=== PATIENT | female | born 1945 | race Caucasian/White ===

== ENCOUNTER 2021-03-05 20:10 | Emergency (ER) | payer MEDICARE ==
[2021-03-05 20:38] VITALS: BP 182/77; PULSE 73; O2SAT 99
[2021-03-05] MEDS ORDERED: CLEOCIN 150 MG CAPSULE PO ONE (20:47)
[2021-03-05] MEDS ORDERED: Adacel Vial IM ONE ×2 (20:48→20:50)
[2021-03-05] MEDS ORDERED: CLEOCIN 150 MG CAPSULE ONE (20:50)
--- NOTE | 2021-03-05 20:54 | ERPHSYRPT ---
- History of Present Illness Time Seen by Provider: 03/05/21 20:34 Source: patient Exam Limitations: no limitations Patient Subjective Stated Complaint: . Triage Nursing Assessment: . Physician History: 75-year-old right-handed dominant female presented in the ER with chief complaint of cat bite right index finger middle phalanx. Patient reports it started son's cat and unsure about immunization status. She is complaining of mild dull aching pain and has 2 puncture wounds. No difficulty movements of finger. Minimal swelling around. Timing/Duration: hour(s) (3), constant, sudden Quality: burning Severity: mild Location: hands Possible Causes: other Associated Symptoms: denies symptoms Allergies/Adverse Reactions: Sulfa (Sulfonamide Antibiotics) Allergy (Intermediate, Verified 03/05/21 20:38) Hives Penicillins Adverse Reaction (Mild, Verified 03/05/21 20:38) Rash Home Medications: Hydroxychloroquine Sulfate 100 mg PO DAILY 03/05/21 [History] Hx Tetanus, Diphtheria Vaccination/Date Given: No Hx Influenza Vaccination/Date Given: Yes Hx Pneumococcal Vaccination/Date Given: Yes Immunizations Up to Date: Yes Travel Risk - International Travel Have you traveled outside of the country in past 3 weeks: No - Coronavirus Screening Are you exhibiting any of the following symptoms?: No Close contact with a COVID-19 positive Pt in past 14-21 Days: No - Vaccine Status Have you recieved a Covid-19 vaccination: Yes [employer] Operator: [employer] - Review of Systems Constitutional: No Symptoms Eyes: No Symptoms Ears, Nose, & Throat: No Symptoms Respiratory: No Symptoms Cardiac: No Symptoms Musculoskeletal: Injury Skin: Skin Lesions Neurological: No Symptoms Psychological: No Symptoms Endocrine: No Symptoms - Past Medical History Pertinent Past Medical History: Yes Cardiac History: Hypertension Musculoskeletal History: Degenerative Disk Disease, Rheumatoid Arthritis - Past Surgical History Past Surgical History: Yes Respiratory: Lobectomy Gastrointestinal: Cholecystectomy Musculoskeletal: Orthopedic Surgery Female Surgical History: Hysterectomy, Section Other Surgical History: Back surgery - Social History Smoking Status: Never smoker Exposure to second hand smoke: No Drug Use: none Patient Lives Alone: Yes - Female History Hx Now: No - Nursing Vital Signs Nursing Vital Signs: Initial Vital Signs Temperature 96.8 F 03/05/21 20:32 Pulse Rate 73 03/05/21 20:32 Respiratory Rate 18 03/05/21 20:32 Blood Pressure 182/77 03/05/21 20:32 O2 Sat by Pulse Oximetry 99 03/05/21 20:32 Pain Scale Pain Intensity 5 - Physical Exam General Appearance: no apparent distress, alert Eye Exam: PERRL/EOMI, eyes nml inspection Ears, Nose, Throat Exam: normal ENT inspection, pharynx normal, moist mucous membranes Neck Exam: normal inspection Respiratory Exam: normal breath sounds, lungs clear Cardiovascular Exam: regular rate/rhythm, normal heart sounds Extremity Exam: other (2 puncture wound on the lateral and dorsal aspect of right index middle phalanx with minimal tenderness. Intact range of motion proximal and distal interphalangeal joint) Neurologic Exam: alert, oriented x 3, cooperative Skin Exam: normal color SpO2 Interpretation: normal SpO2: 99 O2 Delivery: Room Air - Progress Progress: unchanged Progress Note: 03/05/21 20:51 Tetanus is updated. Started on clindamycin. Paperwork filled for health department. Patient is advised to keep cat under observation. Discussed signs symptoms of worsening needing return to ER which she seems understanding. Stable for discharge. Counseled pt/family regarding: diagnosis, need for follow-up - Departure Departure Disposition: Home Clinical Impression: Cat bite Cat bite of finger Qualifiers: Encounter type: initial encounter Qualified Code(s): S61.259A - Open bite of unspecified finger without damage to nail, initial encounter; W55.01XA - Bitten by cat, initial encounter Condition: Stable Critical Care Time: No Referrals: DOCTOR,NO FAMILY [Primary Care Provider] - Follow up/PCP as directed SHIVANI DINERO MD [ACTIVE STAFF] - Follow Up with PCP/3 days Instructions: Animal Bites (DC) Additional Instructions: Take Tyleno as needed for pain. Keep it clean. Follow-up with primary care for reevaluation. Return to ER for increasing pain swelling, difficulty movements of finger, numbness tingling.. Prescriptions: clindamycin HCL [Clindamycin HCl] 300 mg PO QID 7 Days #28 cap
== END 2021-03-05 21:15 | disposition home or self-care (01) ==
LOC: ED 20:10
DX: S61.250A Open bite of right index finger without damage to nail, initial encounter (principal); W55.01XA Bitten by cat, initial encounter; I10 Essential (primary) hypertension
CPT/HCPCS: 90471; 90715; 99283; A9270-GY

== ENCOUNTER 2021-11-04 10:53 | Day surgery (SDC) | payer MEDICARE ==
[2021-11-04] MEDS ORDERED: LIDOCAINE HCL 2% 100 MG/5 ML IJ ONE (10:54)
[2021-11-04] MEDS ORDERED: Depo-Medrol 40 MG/ML IM ONE (10:54)
[2021-11-04] MEDS ORDERED: DIPRIVAN 200 MG/20 ML IV ONE (12:14)
[2021-11-04] MEDS ORDERED: Lactated Ringers 1,000 ML IV ONE (12:23)
--- NOTE | 2021-11-04 13:36 | XRAY ---
Indication: Bilateral L4-S1 MBB. Intraoperative fluoroscopy provided for 16 seconds. Single digital spot image submitted for interpretation demonstrates posterior needle tips projecting over the expected left and right L4-S1 nerve roots. Correlate with intraoperative findings/report. Incidental incompletely visualized bilateral posterior spinal fusion hardware.
--- NOTE | 2021-11-04 13:38 | XRAY ---
16 seconds fluoroscopy time in surgery for bilateral L4-S1 MBB.
== END 2021-11-04 12:31 | disposition home or self-care (01) ==
LOC: SDC-PAIN 10:53
PROVIDERS: ATTEND Psychiatry & Neurology Pain Medicine
DX: M47.816 Spondylosis without myelopathy or radiculopathy, lumbar region (principal); Z79.899 Other long term (current) drug therapy
CPT/HCPCS: 64493; 64494; 72020; 77002; J1030; J2704

== ENCOUNTER 2021-12-02 09:33 | Day surgery (SDC) | payer MEDICARE ==
[2021-12-02] MEDS ORDERED: Marcaine Mpf 0.5% Vial 30 Ml IJ ONE (09:34)
[2021-12-02] MEDS ORDERED: Lactated Ringers 1,000 ML IV ONE (10:55)
[2021-12-02] MEDS ORDERED: DIPRIVAN 200 MG/20 ML IV ONE (11:32)
--- NOTE | 2021-12-02 13:23 | XRAY ---
16 seconds fluoroscopy time in surgery for bilateral L4-S1 MBB.
== END 2021-12-02 11:54 | disposition home or self-care (01) ==
LOC: SDC-PAIN 09:33
PROVIDERS: ATTEND Psychiatry & Neurology Pain Medicine
DX: M47.816 Spondylosis without myelopathy or radiculopathy, lumbar region (principal); Z79.899 Other long term (current) drug therapy
CPT/HCPCS: 64493; 64494; 72020; 77002; J2704

== ENCOUNTER 2022-02-03 06:47 | Day surgery (SDC) | payer MEDICARE ==
[2022-02-03] MEDS ORDERED: BUPIVACAINE 0.5% VIAL IJ ONE (06:48)
[2022-02-03] MEDS ORDERED: Depo-Medrol 40 MG/ML IM ONE (06:48)
[2022-02-03] MEDS ORDERED: XYLOCAINE-MPF 1% 5ML SDV IJ ONE (06:48)
[2022-02-03] MEDS ORDERED: DIPRIVAN 200 MG/20 ML IV ONE ×2 (07:59→08:15)
[2022-02-03] MEDS ORDERED: Xylocaine-Mpf 2% 5 Ml Vial ONE (08:37)
[2022-02-03] MEDS ORDERED: Lactated Ringers 1,000 ML IV ONE (10:49)
--- NOTE | 2022-02-03 10:50 | XRAY ---
Indication: Right L4-S1 RFA. Intraoperative fluoroscopy provided for 48 seconds. 5 digital spot image submitted for interpretation demonstrates posterior needle tips projecting over the expected right L4-S1 nerve roots. Correlate with intraoperative findings/report. Incidental incompletely visualized multilevel bilateral lumbar fusion hardware.
--- NOTE | 2022-02-03 10:58 | XRAY ---
48 seconds of fluoroscopy was used in surgery for a right L4-S1 RFA.
== END 2022-02-03 08:44 | disposition home or self-care (01) ==
LOC: SDC-PAIN 06:47
PROVIDERS: ATTEND Psychiatry & Neurology Pain Medicine
DX: M47.816 Spondylosis without myelopathy or radiculopathy, lumbar region (principal); Z79.899 Other long term (current) drug therapy
CPT/HCPCS: 64635; 64636; 72100; 77002; 99100; J1030; J2704

== ENCOUNTER 2022-02-10 10:45 | Day surgery (SDC) | payer MEDICARE ==
[2022-02-10] MEDS ORDERED: Depo-Medrol 40 MG/ML IM ONE (10:46)
[2022-02-10] MEDS ORDERED: LIDOCAINE HCL 1% 50 MG/5 ML VL PF IJ ONE (10:46)
[2022-02-10] MEDS ORDERED: BUPIVACAINE 0.5% VIAL IJ ONE (10:46)
[2022-02-10] MEDS ORDERED: DIPRIVAN 200 MG/20 ML IV ONE (12:43)
[2022-02-10] MEDS ORDERED: Lactated Ringers 1,000 ML IV ONE (13:04)
--- NOTE | 2022-02-10 14:31 | XRAY ---
Indication: Left L4-S1 RFA. Intraoperative fluoroscopy provided for 43 seconds. 3 digital spot images submitted for interpretation demonstrates posterior needle tips projecting over the expected left L4-S1 nerve roots. Correlate with intraoperative findings/report. Incidental incompletely visualized multilevel bilateral lumbar fusion hardware.
--- NOTE | 2022-02-10 16:33 | XRAY ---
43 seconds fluoroscopy time in surgery for left L4-S1 RFA.
== END 2022-02-10 13:18 | disposition home or self-care (01) ==
LOC: SDC-PAIN 10:45
PROVIDERS: ATTEND Psychiatry & Neurology Pain Medicine
DX: M47.816 Spondylosis without myelopathy or radiculopathy, lumbar region (principal); Z79.899 Other long term (current) drug therapy
CPT/HCPCS: 64635; 64636; 72100; 77002; 99100; J1030; J2001; J2704

== ENCOUNTER 2022-12-29 10:11 | Day surgery (SDC) | payer MEDICARE ==
[2022-12-29] MEDS ORDERED: BUPIVACAINE 0.5% VIAL IJ ONE (10:12)
[2022-12-29] MEDS ORDERED: Depo-Medrol 40 MG/ML IM ONE (10:12)
[2022-12-29] MEDS ORDERED: DIPRIVAN 200 MG/20 ML IV ONE (11:58)
[2022-12-29] MEDS ORDERED: Xylocaine-Mpf 2% 5 Ml Vial ONE (11:59)
--- NOTE | 2022-12-29 12:23 | XRAY ---
Indication: Bilateral SI joint injection. Intraoperative fluoroscopy provided for 16 seconds. 5 digital spot image submitted for interpretation demonstrates posterior needle tip projecting over the expected left and right SI joint. Correlate with intraoperative findings/report.
--- NOTE | 2022-12-29 13:33 | XRAY ---
16 seconds of fluoroscopy was used in surgery for a bilateral sacroiliac joint injection.
[2022-12-29] MEDS ORDERED: Lactated Ringers 1,000 ML IV ONE (14:10)
== END 2022-12-29 12:29 | disposition home or self-care (01) ==
LOC: SDC-PAIN 10:11
PROVIDERS: ATTEND Psychiatry & Neurology Pain Medicine
DX: M46.1 Sacroiliitis, not elsewhere classified (principal); Z79.899 Other long term (current) drug therapy
CPT/HCPCS: 01992; 27096; 72202; 77002; 99100; G0260; J1030; J2704

== ENCOUNTER 2023-06-29 08:51 | Day surgery (SDC) | payer MEDICARE ==
[2023-06-29] MEDS ORDERED: BUPIVACAINE 0.5% VIAL IJ ONE (08:52)
[2023-06-29] MEDS ORDERED: XYLOCAINE-MPF 1% 5ML SDV IJ ONE (08:52)
[2023-06-29] MEDS ORDERED: Depo-Medrol 40 MG/ML IM ONE (08:52)
[2023-06-29] MEDS ORDERED: DIPRIVAN 200 MG/20 ML IV ONE (10:48)
[2023-06-29] MEDS ORDERED: Lactated Ringers 1,000 ML IV ONE (11:29)
--- NOTE | 2023-06-29 11:47 | XRAY ---
Indication: Right L4-S1 RFA. Intraoperative fluoroscopy provided for 50 seconds. 4 digital spot images submitted for interpretation demonstrates posterior needle tips projecting over expected right L4-S1 nerve roots. Correlate with intraoperative findings/report. Incidental incompletely visualized multilevel bilateral lumbar fusion hardware.
--- NOTE | 2023-06-30 14:12 | XRAY ---
50 seconds of fluoroscopy was used in surgery for a right L4-S1 RFA.
== END 2023-06-29 11:25 | disposition home or self-care (01) ==
LOC: SDC-PAIN 08:51
PROVIDERS: ATTEND Psychiatry & Neurology Pain Medicine
DX: M47.816 Spondylosis without myelopathy or radiculopathy, lumbar region (principal)
CPT/HCPCS: 64635; 64636; 72100; 77002; 99100; J1010; J2704

== ENCOUNTER 2023-07-10 09:13 | Emergency (ER) | payer MEDICARE ==
[2023-07-10 09:26] VITALS: TEMP 97
[2023-07-10 09:33] VITALS: O2SAT 97
[2023-07-10 10:00] LABS: Absolute Neutrophil Ct (ANC) 2.16 x10^3/uL (1.4-6.9); BASOPHIL % 0.6 % (0.0-0.4); Basophil (Absolute #) 0.03 x10^3/uL (0-0.4); Eosinophil % 1.3 % (0.00-5.0); Eosinophil (Absolute #) 0.06 x10^3/uL (0-0.5); Hematocrit 36.8 % (35-47); Hemoglobin 12.2 g/dL (12.0-16.0); IMMATURE GRAN # 0.02 x10^3u/L (0.00-0.03); IMMATURE GRAN % 0.4 % (0.00-0.4); Lymphocytes % 43.2 % (24.0-44.0); Mean Cell Volume 92.9 fL (78-100); Mean Corpuscular Hemoglobin 30.8 pg (26-32); Mean Corpuscular Hgb Concent. 33.2 g/dL (32-36); Monocyte (Absolute #) 0.36 x10^3/uL (0.0-1.3); Monocytes % 7.8 % (0.0-12.0); Neutrophil % 46.7 % (36.0-66.0); Platelet Count 194 x10^3/uL (150-450); Red Blood Count 3.96 x10^6/uL (4.1-5.4); Red Cell Distribution Width 13.3 % (11.5-14.0); White Blood Count 4.6 x10^3/uL (4.0-10.5)
[2023-07-10 10:06] LABS: ALBUMIN 4.7 g/dL (3.5-5.0); ANION GAP 13.5 MEQ/L (5-15); BILIRUBIN,TOTAL 0.8 mg/dL (0.2-1.3); Calcium 9.4 mg/dL (8.4-10.2); Creatinine 1 1.02 mg/dL (0.52-1.04); EST GLOMERULAR FILTRATION RATE 56.7 ML/MIN; Potassium 4.2 mmol/L (3.5-5.1); Total Protein 7.2 g/dL (6.3-8.2)
--- NOTE | 2023-07-10 10:11 | ERPHSYRPT ---
- History of Present Illness Time Seen by Provider: 07/10/23 10:06 Source: patient Exam Limitations: no limitations Patient Subjective Stated Complaint: pt here for cough, and headache for a week, she but herself on amoxicillin. no fever Triage Nursing Assessment: pt alert, resp easy, skin w/d/p. no cough at this time, moves all ext well Physician History: Patient is 77-year-old female with significant past medical history of hypertension rheumatoid arthritis started having cough headache sinus drainage for last 2 to 3 days. She took some amoxicillin but without any help and now she is complaining of cough with some phlegm. She denies any heavy pressure type of chest pain nausea vomiting dizziness. She also denies any urinary problems or blood in the stool or urine. Timing/Duration: week(s) (one wek) Cough Quality/Degree: dry cough Possible Cause: no prior episodes Associated Symptoms: cough, headache, No muscle aches, No nasal congestion, No nasal drainage, No shortness of breath Allergies/Adverse Reactions: Sulfa (Sulfonamide Antibiotics) Allergy (Intermediate, Verified 07/10/23 09:24) Hives Penicillins Adverse Reaction (Mild, Verified 07/10/23 09:24) Rash Home Medications: Hydroxychloroquine Sulfate 100 mg PO DAILY 03/05/21 [History] Hx Tetanus, Diphtheria Vaccination/Date Given: No Hx Influenza Vaccination/Date Given: Yes Hx Pneumococcal Vaccination/Date Given: Yes Immunizations Up to Date: Yes Travel Risk - International Travel Have you traveled outside of the country in past 3 weeks: No - Emerging Infectious Disease Are you exhibiting symptoms associated with any current EIDs: Yes Symptoms: Cough: New Onset - Review of Systems Constitutional: No Fever, No Chills Eyes: No Symptoms Ears, Nose, & Throat: No Symptoms, Sinus Drainage Respiratory: Cough, No Dyspnea Cardiac: No Chest Pain, No Edema, No Syncope Abdominal/Gastrointestinal: No Abdominal Pain, No Nausea, No Vomiting, No Diarrhea Genitourinary Symptoms: No Dysuria Musculoskeletal: No Back Pain, No Neck Pain Skin: No Rash Neurological: No Dizziness, No Focal Weakness, No Sensory Changes Psychological: No Symptoms Endocrine: No Symptoms All Other Systems: Reviewed and Negative - Past Medical History Pertinent Past Medical History: Yes Cardiac History: Hypertension Musculoskeletal History: Degenerative Disk Disease, Rheumatoid Arthritis - Past Surgical History Past Surgical History: Yes Respiratory: Lobectomy Gastrointestinal: Cholecystectomy Musculoskeletal: Orthopedic Surgery Female Surgical History: Hysterectomy, Section Other Surgical History: Back surgery - Social History Smoking Status: Never smoker Exposure to second hand smoke: No Drug Use: none Patient Lives Alone: Yes - Nursing Vital Signs Nursing Vital Signs: Initial Vital Signs Temperature 97.0 F 07/10/23 09:25 Pulse Rate 59 L 07/10/23 09:25 Respiratory Rate 18 07/10/23 09:25 Blood Pressure 134/99 07/10/23 09:25 O2 Sat by Pulse Oximetry 99 07/10/23 09:25 Pain Scale Pain Intensity 8 - Physical Exam General Appearance: no apparent distress, alert Eye Exam: PERRL/EOMI, eyes nml inspection Ears, Nose, Throat Exam: normal ENT inspection, TMs normal, pharynx normal, moist mucous membranes Neck Exam: normal inspection, non-tender, supple, full range of motion Respiratory Exam: normal breath sounds, rhonchi, No respiratory distress Cardiovascular Exam: regular rate/rhythm, normal heart sounds Gastrointestinal/Abdomen Exam: soft, No tenderness Back Exam: normal inspection, No CVA tenderness, No vertebral tenderness Extremity Exam: normal inspection, normal range of motion Neurologic Exam: alert, oriented x 3, cooperative, normal mood/affect, sensation nml, No motor deficits Skin Exam: normal color, warm, dry, No rash Lymphatic Exam: No adenopathy SpO2: 97 - Course Nursing assessment & vital signs reviewed: Yes - Radiology Exams Chest X-ray Interpretation: Interpreted by me (no acute infiltrates, ), Reviewed by me, No Pneumonia Ordered Tests: Active Orders 24 hr Category Date Time Status CHEST 2 VIEWS (PA AND LAT) Stat Exams 07/10/23 10:04 Taken CBC W DIFF Stat Lab 07/10/23 09:48 Completed CMP Stat Lab 07/10/23 09:48 Completed Lab/Rad Data: Laboratory Result Diagrams 07/10/23 09:48 07/10/23 09:48 Laboratory Results 07/10/23 07/10/23 Range/Units 09:48 09:48 WBC 4.6 (4.0-10.5) x10^3/uL RBC 3.96 L (4.1-5.4) x10^6/uL Hgb 12.2 (12.0-16.0) g/dL Hct 36.8 (35-47) % MCV 92.9 (78-100) fL MCH 30.8 (26-32) pg MCHC 33.2 (32-36) g/dL RDW 13.3 (11.5-14.0) % Plt Count 194 (150-450) x10^3/uL MPV 10.0 (7.5-11.0) fL Gran % 46.7 (36.0-66.0) % Immature Gran % (Auto) 0.4 (0.00-0.4) % Nucleat RBC Rel Count 0.0 (0.00-0.1) % Eos # (Auto) 0.06 (0-0.5) x10^3/uL Immature Gran # (Auto) 0.02 (0.00-0.03) x10^3u/L Absolute Lymphs (auto) 2.00 (1.0-4.6) x10^3/uL Absolute Monos (auto) 0.36 (0.0-1.3) x10^3/uL Absolute Nucleated RBC 0.00 (0.00-0.01) x10^3u/L Lymphocytes % 43.2 (24.0-44.0) % Monocytes % 7.8 (0.0-12.0) % Eosinophils % 1.3 (0.00-5.0) % Basophils % 0.6 (0.0-0.4) % Absolute Granulocytes 2.16 (1.4-6.9) x10^3/uL Basophils # 0.03 (0-0.4) x10^3/uL Sodium 137 (135-145) mmol/L Potassium 4.2 (3.5-5.1) mmol/L Chloride 107 (98-107) mmol/L Carbon Dioxide 21 L (22-30) mmol/L Anion Gap 13.5 (5-15) MEQ/L BUN 19 H (7-17) mg/dL Creatinine 1.02 (0.52-1.04) mg/dL Estimated GFR 56.7 ML/MIN Glucose 95 (74-106) mg/dL Calcium 9.4 (8.4-10.2) mg/dL Total Bilirubin 0.80 (0.2-1.3) mg/dL AST 34 (14-36) U/L ALT 26 (0-35) U/L Alkaline Phosphatase 75 (38-126) U/L Serum Total Protein 7.2 (6.3-8.2) g/dL Albumin 4.7 (3.5-5.0) g/dL - Progress Progress: improved, re-examined Air Movement: good Blood Culture(s) Obtained: No Antibiotics given: Yes Counseled pt/family regarding: lab results, diagnosis, need for follow-up, rad results Medical Desision Making - Diagnostic Testing Diagnostic test were ordered, analyzed, and reviewed by me: Yes Radiological Interpretation: Interpreted by me, Reviewed by me - Departure Departure Disposition: Home Clinical Impression: Allergic bronchitis Qualifiers: Asthma severity: unspecified severity Asthma complication type: uncomplicated Qualified Code(s): J45.909 - Unspecified asthma, uncomplicated Condition: Stable Critical Care Time: No Referrals: LAM STERN MD [Primary Care Provider] - Follow up/PCP as directed Instructions: Bronchitis, Adult ED Additional Instructions: Continue using your inhaler. Stop taking amoxicillin. Follow-up with your primary care physician in next 2 to 3 days if symptoms do not resolve. Discharge/Care Plan RENITAFABBYARNAUDMINISTERIO Leydi was seen on 07/10/23 in the Emergency Room. The patient was counseled regarding Diagnosis,Lab results, Imaging studies, need for follow up and when to return to the Emergency Room. Prescriptions given: Discharge Note I have spoken with the patient and/or caregivers. I have explained the patient's condition, diagnosis and treatment plan based on the information available to me at this time. I have answered the patient's and/or caregiver's questions and addressed any concerns. The patient and/or caregivers have as good understanding of the patient's diagnosis, condition and treatment plan as can be expected at this point. The vital signs have been stable. The patient's condition is stable and appropriate for discharge from the emergency department. The patient will pursue further outpatient evaluation with the primary care physician or other designated or consulting physician as outlined in the discharge instructions. The patient and/or caregivers are agreeable to this plan of care and follow-up instructions have been explained in detail. The patient and/or caregivers have received these instruction. The patient/and or caregivers are aware that any significant change in condition or worsening of symptoms should prompt an immediate return to this or the closest emergency department or call 911. KENNETHMINISTERIO GALAN Leydi was seen on 07/10/23 n the Emergency Room. At that time you were treated for an emergent condition, during your visit Laboratory, Radiology and/or other procedures may have been ordered. It is very important that you follow-up with your Primary Care Physician LAM STERN MD within t he next 24-48 hours to review your Emergency Room visit and the final results of testing that was ordered. Some test results such as Urine Cultures, Blood Cultures, and other cultures if ordered will not be finalized for 24-48 hours. If you do not have a Primary Care Provider please call the medical records department at [phone] ext [phone] to obtain a copy of your results or you may sign into our patient portal to obtain these results by visiting us @ [email or web address] and completing the following steps: 1. Click on the Patient Portal link 2. Click the Patient Self Enrollment Link to complete the enrollment form and entering your 3. Once the enrollment form is completed you will receive an email with a temporary ID and password at the email address you provided. 4. Next choose a user name and password. Your user name must be at least 4 characters long and your password must be at least 4 characters long. 5. Choose a security question from the list and provide your answer to the question. If you already have signed into the Health Portal you may access your Health Care Information 20/09 by the following steps: 1. Login to our website @ [email or web address] 2. Enter your original user name and password. FAQS The [facility] Health Portal is an online tool that contains your Lab Results, Radiology Reports, Visit History, Discharge Instructions and Health Summary Lab and Radiology Results will not be available for 72 hours on the portal. The Portal is a secure site, passwords are encryted and URLs are re-written so they cannot be copied and pasted. You and authorized family members are the only ones who can access your Portal. Also there is a timeout feature that protects your information if you leave the Portal page open. If you have technical difficulty please use the Contact Us link on the page this will allow you to submit any questions you have regarding the Portal or you may contact the Medical Record Department at [phone] ext [phone].
[2023-07-10] MEDS ORDERED: solu-MEDROL ONE (10:35)
[2023-07-10] MEDS ORDERED: Sterile H2O 10 ml IJ ONE (10:35)
[2023-07-10] MEDS: solu-MEDROL 125 MG, Sterile H2O 10 ml 2 ML IM ONE (10:37)
[2023-07-10 11:05] VITALS: BP 153/80; PULSE 74; RESP 18
--- NOTE | 2023-07-10 17:53 | XRAY ---
Indication: Cough 5 days. Comparison: January 25, 2022 PA/lateral chest remains inflated and clear. Heart and mediastinal structures within normal limits. Bony thorax intact again with mild degenerative changes, moderate dextroscoliosis, right shoulder arthroplasty, and incompletely visualized lumbar fusion hardware. Impression: Continued nonacute chest with chronic bony findings.
== END 2023-07-10 11:05 | disposition home or self-care (01) ==
LOC: ED 09:13
DX: J45.909 Unspecified asthma, uncomplicated (principal); R05.1 Acute cough; R51.9 Headache, unspecified; I10 Essential (primary) hypertension; Z79.899 Other long term (current) drug therapy
CPT/HCPCS: 36415; 71046; 80053; 85025; 96372; 99283; J2919

== ENCOUNTER 2024-03-20 10:09 | Day surgery (SDC) | payer MEDICARE ==
[~2024-03-20 10:09] MED LIST: BETADINE 5% OPHTHALMIC 30 ML OP ONE; Sodium Chloride 0.9% 10 ML FLUSH Syringe IJ ONE; TRIAMCINOLONE 15 MG/ML INJ INTRAOP ONE; VIGAMOX/BSS 0.15% SYR IO ONE
[2024-03-20] MEDS: TETRACAINE 0.5% STERI-UNIT SOL OP ONE ×2 (11:11→11:40)
[2024-03-20] MEDS: Ak-Dilate OPHTHALMIC*** 1.065 ML, Cyclogyl 1% OPHTH SOL 1.065 ML, GATIFLOXACIN 0.5% OPH... OP ONE (11:12)
[2024-03-20] MEDS ORDERED: Epinephrine Preservative Free 1 MG/ML IJ ONE (11:30)
[2024-03-20] MEDS ORDERED: DEXMEDETOMIDINE 80 MCG/20ML-NS IV ONE ×2 (11:30)
[2024-03-20] MEDS ORDERED: Zofran 4 MG/2 ML VIAL IV PRN (11:30)
[2024-03-20] MEDS ORDERED: propofoL IV ONE (12:08)
[2024-03-20 12:29] VITALS: RESP 16
[2024-03-20 12:46] VITALS: BP 126/72; PULSE 57; TEMP 98.8; O2SAT 99
== END 2024-03-20 12:52 | disposition home or self-care (01) ==
LOC: SDC 10:09
PROVIDERS: ATTEND Ophthalmology
DX: H25.812 Combined forms of age-related cataract, left eye (principal)
CPT/HCPCS: C1780; J0171; J2704; A9270-GY

== ENCOUNTER 2024-03-30 07:19 | Day surgery (SDC) | payer MEDICARE ==
[2024-03-30] MEDS ORDERED: Lactated Ringers 1,000 ML IV ONE (07:35)
[2024-03-30 07:38] VITALS: RESP 18
[2024-03-30] MEDS: Lactated Ringers 1,000 ML IV SCH (07:44)
[2024-03-30] MEDS: TETRACAINE 0.5% STERI-UNIT SOL OP ONE ×2 (07:45→08:18)
[2024-03-30] MEDS: Ak-Dilate OPHTHALMIC*** 1.065 ML, Cyclogyl 1% OPHTH SOL 1.065 ML, GATIFLOXACIN 0.5% OPH... OP ONE (07:45)
[2024-03-30] MEDS ORDERED: DEXMEDETOMIDINE 80 MCG/20ML-NS IV NR (09:30)
[2024-03-30] MEDS ORDERED: VIGAMOX/BSS 0.15% SYR IO NR (09:30)
[2024-03-30] MEDS ORDERED: Zofran 4 MG/2 ML VIAL IV PRN (09:30)
[2024-03-30] MEDS ORDERED: Epinephrine Preservative Free 1 MG/ML INTRAOP NR (09:30)
[2024-03-30] MEDS ORDERED: BETADINE 5% OPHTHALMIC 30 ML OP NR (09:30)
[2024-03-30] MEDS ORDERED: TRIAMCINOLONE 15 MG/ML INJ INTRAOP NR (09:30)
[2024-03-30] MEDS ORDERED: propofoL IV ONE (10:43)
[2024-03-30 11:11] VITALS: TEMP 97.1
[2024-03-30 11:24] VITALS: BP 113/79; PULSE 62; O2SAT 97
== END 2024-03-30 11:35 | disposition home or self-care (01) ==
LOC: SDC 07:19
PROVIDERS: ATTEND Ophthalmology
DX: H25.811 Combined forms of age-related cataract, right eye (principal)
CPT/HCPCS: C1780; J0171; J2704; A9270-GY

== ENCOUNTER 2024-04-18 07:02 | Day surgery (SDC) | payer MEDICARE ==
[2024-04-18] MEDS ORDERED: Sodium Chloride 0.9(Preservative Free) 10 ML IJ ONE (07:03)
[2024-04-18] MEDS ORDERED: LIDOCAINE HCL 1% AMPUL 5 ML IJ ONE (07:03)
[2024-04-18] MEDS ORDERED: Lactated Ringers 500 ML IV ONE ×2 (07:10→07:38)
[2024-04-18] MEDS ORDERED: propofoL IV ONE (08:17)
--- NOTE | 2024-04-18 10:31 | XRAY ---
Indication: Spinal cord stimulator trial. Intraoperative fluoroscopy provided for 1 minute 17 second. 8 digital spot image submitted for interpretation demonstrates posterior introducer needle tip projecting over thoracolumbar junction. Ultimately single epidural lead inserted with tip positioned approximately T6. Correlate with intraoperative findings/report.
--- NOTE | 2024-04-18 10:31 | XRAY ---
One minute and 17 seconds of fluoroscopy was used in surgery for a spinal cord stimulator trial.
== END 2024-04-18 09:15 | disposition home or self-care (01) ==
LOC: SDC-PAIN 07:02
PROVIDERS: ATTEND Psychiatry & Neurology Pain Medicine
DX: M96.1 Postlaminectomy syndrome, not elsewhere classified (principal)
CPT/HCPCS: 63650; 72100; 77002; 99100; C1897; J2704

== ENCOUNTER 2024-06-01 15:32 | Emergency (ER) | payer MEDICARE ==
--- NOTE | 2024-06-01 15:36 | ERPHSYRPT ---
- History of Present Illness Time Seen by Provider: 06/01/24 15:35 Source: patient, family Exam Limitations: no limitations Physician History: This is a 78-year-old obese white female patient arrives with private vehicle and drove herself here. Patient complains of left leg pain that was not present before she had a pain stimulator placed at a [facility] yesterday, 05/31/2024. The patient had the procedure performed yesterday morning and in the recovery room she complained of the pain that she is describing now. Ultimately, she has been given a hydrocodone-based oral medication, a steroid Dosepak, prescription for Keflex and a prescription for Zofran orally. She did not pickle sorter the Zofran till today. The pain is described as sharp and shooting pain. Patient drove herself to the emergency department and ambulated herself to the emergency department room. She states that on 1 occasion her left knee almost gave out. She did not fall or injure herself. Patient took a full [place] 5/325 at 1030 this morning and half of the same type of medication at 1430. She also states that she took a Zofran at 1430. Patient has a pain specialist, Dr. Andino. She stated that she did contact him and he told her that he could not do anything for her and to come to the emergency department as did the surgeon who placed the pain stimulator, Dr. Garcia (?) patient has a history of gastroesophageal reflux disease, hypertension and hypothyroidism. Patient has no numbness in her feet. Patient has no bowel or urinary incontinence. Method of Injury: other (Surgical. No falls or trauma since that procedure yesterday, 05/31/2024) Occurred: yesterday Quality: sharpness, stabbing Severity of Pain-Max: moderate Severity of Pain-Current: mild Modifying Factors: Improves With: movement Associated Symptoms: none Allergies/Adverse Reactions: Sulfa (Sulfonamide Antibiotics) Allergy (Intermediate, Verified 06/01/24 15:47) Hives Penicillins Adverse Reaction (Mild, Verified 06/01/24 15:47) Rash Home Medications: Calcium Carbonate [Calcium] 600 mg PO DAILY 03/20/24 [History] Cholecalciferol (Vitamin D3) [D3-2000] 1 cap PO DAILY 03/20/24 [History] Fluticasone Propionate [Allergy Relief] 1 spray INTRANASAL DAILY 03/20/24 [History] Levothyroxine Sodium 100 Mcg [Synthroid 100 Mcg] 100 mcg PO DAILY 03/20/24 [History] Losartan Potassium 50 mg [Cozaar 50 MG] 100 mg PO DAILY 03/20/24 [History] PANTOPRAZOLE 40 mg Tablet [Protonix 40MG Tablet] 40 mg PO DAILY 03/20/24 [History] Spironolactone 25 mg [Aldactone 25 MG] 25 mg PO DAILY 03/20/24 [History] Upadacitinib [Rinvoq] 15 mg PO DAILY 03/20/24 [History] Vitamin B Complex 1 cap PO DAILY 03/20/24 [History] Vitamin E (Dl,Tocopheryl Acet) [Vitamin E] 450 mg PO DAILY 03/20/24 [History] Hx Tetanus, Diphtheria Vaccination/Date Given: No Hx Influenza Vaccination/Date Given: Yes Hx Pneumococcal Vaccination/Date Given: Yes Travel Risk - International Travel Have you traveled outside of the country in past 3 weeks: No - Emerging Infectious Disease Are you exhibiting symptoms associated with any current EIDs: No Symptoms: Cough: New Onset - Review of Systems Constitutional: No Symptoms Eyes: No Symptoms Ears, Nose, & Throat: No Symptoms Respiratory: No Symptoms Cardiac: No Symptoms Abdominal/Gastrointestinal: No Symptoms Genitourinary Symptoms: No Symptoms Musculoskeletal: No Symptoms Skin: No Symptoms Psychological: No Symptoms Endocrine: No Symptoms Hematologic/Lymphatic: No Symptoms Immunological/Allergic: No Symptoms All Other Systems: Reviewed and Negative - Past Medical History Pertinent Past Medical History: Yes Neurological History: Migraines ENT History: Cataracts Cardiac History: Hypertension Respiratory History: No Pertinent History Endocrine Medical History: Hypothyroidism Musculoskeletal History: Degenerative Disk Disease, Rheumatoid Arthritis GI Medical History: GERD, Gallbladder Disease, Polyps History: Other Psycho-Social History: No Pertinent History Female Reproductive Disorders: Other Other Medical History: couple spot on kidney and liver just watching them - Past Surgical History Past Surgical History: Yes Neuro Surgical History: No Pertinent History Cardiac: No Pertinent History Respiratory: Lobectomy Gastrointestinal: Cholecystectomy Musculoskeletal: Orthopedic Surgery Female Surgical History: Hysterectomy, Section Other Surgical History: Back surgery - Social History Drug Use: none - Social Determinants of Health Will the patient participate in the screening: Declined to provide - Nursing Vital Signs Nursing Vital Signs: Initial Vital Signs Temperature 98.7 F 06/01/24 15:42 Pulse Rate 63 06/01/24 15:42 Respiratory Rate 25 H 06/01/24 15:42 Blood Pressure 148/80 06/01/24 15:42 O2 Sat by Pulse Oximetry 100 06/01/24 15:42 Pain Scale Pain Intensity 10 - Physical Exam General Appearance: no apparent distress, alert, anxiety, obese Eyes, Ears, Nose, Throat Exam: normal ENT inspection, moist mucous membranes Neck Exam: normal inspection, non-tender, supple, full range of motion Cardiovascular/Respiratory Exam: chest non-tender, no respiratory distress Gastrointestinal/Abdominal Exam: non-tender Back Exam: normal inspection, normal range of motion, other (The postoperative dressings are intact and clean. There is no evidence of swelling or cellulitis present.), No CVA tenderness, No vertebral tenderness, No point tenderness Hips Exam: bilateral: non-tender, normal inspection, normal range of motion, no evidence of injury Legs Exam: right leg: non-tender, left leg: other (Patient does have full range of motion on her left lower extremity but grimaces with movement of left side), bilateral leg: normal inspection, normal range of motion, no evidence of injury Knees Exam: bilateral knee: non-tender, normal inspection, normal range of motion, no evidence of injury Ankle Exam: bilateral ankle: non-tender, normal inspection, normal range of motion, no evidence of injury Foot Exam: bilateral foot: non-tender, normal inspection, normal range of motion, no evidence of injury Neuro/Tendon Exam: normal sensation, normal motor functions, normal tendon functions, responds to pain, no evidence tendon injury Mental Status Exam: alert, oriented x 3, cooperative Skin Exam: normal color, warm, dry SpO2 Interpretation: normal O2 Delivery: Room Air - Course Nursing assessment & vital signs reviewed: Yes Ordered Tests: Active Orders 24 hr Category Date Time Status ABDOMEN AND PELVIS W/0 CONTRAS [CT] Stat Exams 06/01/24 16:34 Completed Medication Summary Discontinued Medications Generic Name Dose Route Start Last Admin Trade Name Freq PRN Reason Stop Dose Admin Methylprednisolone Sodium 0 mg 06/01/24 16:33 06/01/24 17:05 Succinate 125 mg/ Sterile IM 06/01/24 16:34 125 mg Water 2 ml STAT ONE Administration Meperidine HCl 25 mg 06/01/24 16:32 06/01/24 17:00 Meperidine Hcl 25 Mg Syringe IM 06/01/24 16:33 25 mg STAT ONE Administration Meperidine HCl Confirm 06/01/24 16:39 Meperidine Hcl 50 Mg/Ml Carp Administered 06/01/24 16:40 Dose 50 mg .ROUTE .STK-MED ONE Methylprednisolone Sodium Succinate Confirm 06/01/24 16:39 Methylprednis Sod Succ 125 Mg/2 Ml Vial Administered 06/01/24 16:40 Dose 125 mg .ROUTE .STK-MED ONE Orphenadrine Citrate 60 mg 06/01/24 16:32 06/01/24 17:02 Orphenadrine Citrate 60 Mg/2 Ml Vial IM 06/01/24 16:33 60 mg STAT ONE Administration Orphenadrine Citrate Confirm 06/01/24 16:39 Orphenadrine Citrate 60 Mg/2 Ml Vial Administered 06/01/24 16:40 Dose 60 mg .ROUTE .STK-MED ONE Sterile Water Confirm 06/01/24 16:38 Water For Injection,Sterile 10 Ml Vial Administered 06/01/24 16:39 Dose 10 ml IJ .STK-MED ONE - Progress Progress: improved, pain not gone completely Progress Note: 06/01/24 17:00 My medical decision making and the assignment of low to moderate complexity is based on review of the patient's past medical history, review the patient's medication list, review the patient drug allergy list, history present illness and physical findings on examination. The workup in this patient includes CT scan of the abdomen pelvis to evaluate the position of the pain/nerve stimulator. In addition, we will provide the patient with an injection of Solu-Medrol, Demerol, Norflex medication. Patient took a Zofran at 2:30 PM prior to arrival. We will hold on providing more Zofran. Differential diagnosis includes but is not limited to postoperative pain, m alpositioning of pain stimulator, current inadequate pain control 06/01/24 17:[address] scan of the abdomen pelvis without contrast was interpreted by the radiologist. The impression states markedly distended bladder. Obstruction versus neurogenic bladder. There is no mention of malposition of the neurostimulator. 06/01/24 17:36 The patient needs to urinate now. She states that she has been urinating even after the neurostimulator was placed. Her pain is improved on the regimen I provided her in the emergency department. She will continue to use her prescriptions that she has at home. Counseled pt/family regarding: diagnosis, need for follow-up, rad results Medical Desision Making - Independent Historian Additional History obtained from: Family - Diagnostic Testing Diagnostic test were ordered, analyzed, and reviewed by me: Yes Radiological Interpretation: Reviewed by me, Teleradiologist Report - Risk of complications Low Risk: Low risk of morbidity from additional dx testing or treatment - Departure Departure Disposition: Home Clinical Impression: Left leg pain Condition: Stable Critical Care Time: No Referrals: LAM STERN MD [Primary Care Provider] - Follow up/PCP as directed Additional Instructions: Continue your pain medication as prescribed. If the pain worsens, you may return to our emergency department for reassessment. Your other option is to contact [place] surgeon, Dr. Garcia and proceed to that emergency department for further evaluation and workup as we discussed.
[2024-06-01 15:47] VITALS: TEMP 98.7
[2024-06-01] MEDS ORDERED: Sterile H2O 10 ml IJ ONE (16:38)
[2024-06-01] MEDS ORDERED: Norflex 60 MG/2 ML ONE (16:39)
[2024-06-01] MEDS ORDERED: DEMEROL 50 MG ONE (16:39)
[2024-06-01] MEDS ORDERED: solu-MEDROL ONE (16:39)
[2024-06-01] MEDS: DEMEROL 25MG SYRINGE IM ONE (17:00)
[2024-06-01] MEDS: Norflex 60 MG/2 ML IM ONE (17:02)
[2024-06-01] MEDS: solu-MEDROL 125 MG, Sterile H2O 10 ml 2 ML IM ONE (17:05)
[2024-06-01 17:06] VITALS: PULSE 66; RESP 16; O2SAT 97
--- NOTE | 2024-06-01 17:14 | XRAY ---
Indication: Left lower extremity pain. Status post pain stimulator placement one day earlier. Multiple contiguous axial images obtained through the abdomen and pelvis without contrast. Comparison: None Visualized lung bases clear. Heart not included in [id number]. Extreme beam artifact from left lower back stimulator device and L2-L5 bilateral posterior fusion hardware. Minimal left paraspinal subcutaneous emphysema and tiny epidural air bubbles presumed from recent epidural stimulator placement. Noncontrasted stomach and visualized bowel loops appear nonobstructed appendix not visualized. Scattered colonic diverticulosis, greatest in sigmoid colon. Previous cholecystectomy and hysterectomy. No free fluid/air. Urinary bladder is markedly distended either due to outlet obstruction versus neurogenic bladder. 4.8 cm right renal cyst. Mild diffuse fatty liver. Remaining liver, pancreas, spleen, adrenal glands, kidneys, ureters, and bladder are unremarkable for noncontrast exam. Mild aortoiliac calcifications without AAA. Osseous structures intact with osteopenia, mild/moderate multilevel thoracolumbar degenerative spondylosis, 7 mm L4 spondylolisthesis, and mild levorotoscoliosis centered at L2. Impression: 1. Beam artifact from left lower back stimulator device and L2-L5 fusion hardware. 2. Markedly distended urinary bladder. Rule out outlet obstruction versus neurogenic bladder. 3. Chronic findings including colonic diverticulosis, fatty liver, right renal cyst, arteriosclerotic disease, and chronic bony findings.
[2024-06-01 17:40] VITALS: BP 138/87
== END 2024-06-01 17:45 | disposition home or self-care (01) ==
LOC: ED 15:32
DX: M79.605 Pain in left leg (principal); I10 Essential (primary) hypertension; Z79.899 Other long term (current) drug therapy
CPT/HCPCS: 74176; 96372; 99284; J2175; J2360; J2919